=== PATIENT | male | born 1990 | race African-American/Black ===

== ENCOUNTER 2016-07-03 16:59 | Emergency (ER) | payer SELFPAY ==
[~2016-07-03 16:59] MED LIST: DOXYCYCLINE PO; DOXYCYCLINE150 MG PO; FLAGYL PO; VIBRAMYCIN100 M1 DOB
[2016-07-06 19:55] LABS: CHLAMYDIA TRACH Detected (Not Detected); N GONOR Not Detected (Not Detected)
== END 2016-07-03 17:55 | disposition home or self-care (01) ==
LOC: CED 16:59 → CFTX 16:59 → CED 17:32 → CFTX 17:32
PROVIDERS: Emergency Medicine
DX: N34.1 Nonspecific urethritis (principal); J30.2 Other seasonal allergic rhinitis; J45.909 Unspecified asthma, uncomplicated; Z88.8 Allergy status to other drugs, medicaments and biological substances
CPT/HCPCS: 87491; 87591; 96372; 99283; J0696